=== PATIENT | female | born 1985 | race Caucasian/White ===

== ENCOUNTER 2016-08-24 07:41 | Emergency (ER) | payer BC ==
[2016-08-24] MEDS ORDERED: ONDANSETRON HCL IV 4 MG/2 ML VIAL IV ONE (08:05)
[2016-08-24] MEDS ORDERED: 0.9 % SODIUM CHLORIDE 1,000 ML BAG IV ONE (08:05)
--- NOTE | 2016-08-24 08:12 | Emergency Department Record ---
History of Present Illness - General Chief Complaint: Abdominal Pain Stated Complaint: ABD PAIN Time Seen by Provider: 08/24/16 08:04 Source: Patient, Family Mode of Arrival: Ambulatory Limitations: No limitations - History of Present Illness Initial Comments: 30 yo female presents with nausea (no vomiting) and diarrhea. The onset of the diarrhea was yesterday morning. Her son had diarrhea earlier in the week. She felt subjective fevers and chills. The pain was epigastric but is decreasing at this time. She has had her gall bladder removed in the past. PCP is Dr. Jalloh. Complaint: Abdominal pain, Other (Vomiting and diarrhea) Onset/Timin -: Days(s) Location: Epigastric Radiation: Back Severity: Moderate Quality: Sharp Consistency: Intermittent Improves With: Nothing Worsens With: Nothing Context: Sick contacts Associated Symptoms: Diarrhea, Fever - Related Data LMP Date: 08/13/16 LMP (females 10-50): Last week Patient : No Home Medications Medication Instructions Recorded Confirmed Last Taken Alprazolam [Xanax] 0.25 mg PO TID PRN tab 11/23/15 08/24/16 Unknown Fexofenadine/Pseudoephedrine 1 cap PO DAILY 08/24/16 08/24/16 Unknown [Tiana-D 24 Hour Tablet] Previous Rx's Medication Instructions Recorded Ondansetron [Zofran Odt] 4 mg PO Q8H #15 tab.rapdis 08/24/16 Pantoprazole Sodium [Protonix] 20 mg PO DAILY #30 tablet. 08/24/16 Sucralfate [Carafate] 1 g PO BID #200 udc 08/24/16 Allergies Allergy/AdvReac Type Severity Reaction Status Date / Time No Known Drug Allergies Allergy Verified 08/24/16 08:00 Travel Screening - Travel/Exposure Within Last 30 Days Have you traveled within the last 30 days?: No - Travel/Exposure Within Last Year Have you traveled outside the [place] in the last year?: No - Additonal Travel Details Have you been exposed to anyone with a communicable illness?: No Review of Systems Constitutional: Reports: Chills, Fever. Denies: Malaise, Weakness Eyes: Denies: Eye discharge ENT: Denies: Congestion, Ear pain, Throat pain Respiratory: Denies: Cough, Wheezes Cardiovascular: Denies: Chest pain, Palpitations, Syncope Endocrine: Denies: Fatigue, Polydipsia, Polyuria Gastrointestinal: Reports: As per HPI, Abdominal pain, Diarrhea, Nausea. Denies : Constipation, Hematemesis, Vomiting Genitourinary: Denies: Dysuria, Frequency, Urgency Musculoskeletal: Denies: Arthralgia, Back pain, Neck pain Skin: Denies: Bruising, Change in color, Rash Neurological: Denies: Confusion, Headache Psychiatric: Denies: Anxiety Hematological/Lymphatic: Denies: Blood Clots, Easy bleeding, Easy bruising, Swollen glands Past Medical History - SOCIAL HISTORY Smoking Status: Never smoker Alcohol Use: None Drug Use: None - RESPIRATORY Hx Respiratory Disorders: No - CARDIOVASCULAR Hx Cardio Disorders: Yes Comment:: mitral valve prolaspe - NEURO Hx Neuro Disorders: Yes Hx Dizziness: Yes (POTS) - GI Hx GI Disorders: Yes Hx Reflux: Yes - Hx Genitourinary Disorders: No - ENDOCRINE Hx Endocrine Disorders: No - MUSCULOSKELETAL Hx Musculoskeletal Disorders: No - PSYCH Hx Psych Problems: No - HEMATOLOGY/ONCOLOGY Hx Hematology/Oncology Disorders: No Family Medical History Any Significant Family History?: Yes Hx Heart Disease: Grandparents *Heart Comment: mitral valve prolaspe and factor 5 clotting disorder Physical Exam - General General Appearance: Alert, Oriented x3, Cooperative, No acute distress Limitations: No limitations - Head Head exam: Normal inspection - Eye Eye exam: Normal appearance. negative: Conjunctival injection - ENT ENT exam: Normal exam, Mucous membranes moist Ear exam: Normal external inspection Nasal Exam: Normal inspection Mouth exam: Normal external inspection Teeth exam: Normal inspection Throat exam: Normal inspection - Neck Neck exam: Normal inspection, Full ROM. negative: Tenderness - Respiratory Respiratory exam: Normal lung sounds bilaterally. negative: Respiratory distress, Rhonchi, Stridor, Wheezes - Cardiovascular Cardiovascular Exam: Regular rate, Normal rhythm, Normal heart sounds - GI/Abdominal GI/Abdominal exam: Soft. negative: Diminished bowel sounds, Distended, Rebound , Rigid, Tenderness - Rectal Rectal exam: Deferred - exam: Deferred - Extremities Extremities exam: Normal inspection, Full ROM, Normal capillary refill. negative: Pedal edema, Tenderness - Back Back exam: Reports: Normal inspection, Full ROM. Denies: CVA tenderness (R), CVA tenderness (L), Muscle spasm, Paraspinal tenderness, Rash noted, Tenderness , Vertebral tenderness - Neurological Neurological exam: Alert, Normal gait, Oriented X3 - Psychiatric Psychiatric exam: Normal affect, Normal mood. negative: Agitated, Anxious - Skin Skin exam: Dry, Intact, Normal color, Warm Course Vital Signs 08/24/16 07:50 Temperature 97.8 F Pulse Rate 120 H Respiratory 16 Rate Blood Pressure 115/82 Pulse Ox 99 - Reevaluation(s) Reevaluation #1: The patient declined the need for Zofran or pain medications at this time. 08/24/16 08:28 Reevaluation #2: No acute changes on the CBC or UA expect ketones noted on the UA. 08/24/16 08:37 Reevaluation #3: The CMP demonstrates dehydration as well as isolated elevated bilirubin of 3.8. She has records with prior elevated bilirubins as well. 08/24/16 08:43 Reevaluation #4: The patient continues to do well without nausea or pain 08/24/16 09:33 Reevaluation #5: 2nd liter completing patient is doing well DC home with Zofran,Carafate and Protonix 08/24/16 10:17 Medical Decision Making - Lab Data Result diagrams: 08/24/16 08:20 08/24/16 08:20 Disposition Clinical Impression: Nausea Diarrhea Qualifiers: Diarrhea type: unspecified type Qualified Code(s): R19.7 - Diarrhea, unspecified Condition: (1) Good Instructions: Acute Diarrhea (ED), Acute Nausea and Vomiting (ED) Additional Instructions: Rest and stay hydrated Return if you have uncontrolled nausea, vomiting or diarrhea Return if you have abdominal pain or any new concerns Prescriptions: Sucralfate [Carafate] 1 g PO BID #200 udc Pantoprazole Sodium [Protonix] 20 mg PO DAILY #30 tablet. Ondansetron [Zofran Odt] 4 mg PO Q8H #15 tab.rapdis Forms: Patient Portal Access
[2016-08-24 08:27] LABS: BASO % 0.3 % (0-6); EOS % 0.6 % (0-6); HEMATOCRIT 42.3 % (35.0-47.0); HEMOGLOBIN 14.9 gm/dl (11.6-16.0); LYMPH % 14.1 % (16-45); MEAN CELL VOLUME 89.6 fl (81-97); MEAN CORPUSCULAR HEMOGLOBIN 31.6 pg (27-33); MEAN CORPUSCULAR HGB CONC 35.2 g/dl (32-36); MEAN PLATELET VOLUME 9.2 fl (7.4-10.4); PLATELET COUNT 257 K/uL (130-400); RED BLOOD COUNT 4.72 M/uL (3.80-5.40); WHITE BLOOD COUNT W/O DIFF 6.5 K/uL (4.2-12.2)
[2016-08-24 08:29] LABS: URINE APPEARANCE CLEAR; URINE BILIRUBIN NEGATIVE (NEGATIVE); URINE BLOOD TRACE-I (NEGATIVE); URINE COLOR YELLOW; URINE GLUCOSE (UA) NEGATIVE (NEGATIVE); URINE KETONE 15 mg/dL (NEGATIVE); URINE LEUKOCYTE ESTERASE NEGATIVE (NEGATIVE); URINE NITRITE NEGATIVE (NEGATIVE); URINE PROTEIN NEGATIVE (NEGATIVE); URINE UROBILINOGEN 0.2 E.U./dL (0.20 - 1.00)
[2016-08-24 08:32] LABS: HCG,QUALITATIVE URINE NEGATIVE (NEGATIVE)
[2016-08-24 08:38] LABS: URINE BACTERIA FEW; URINE RBC 0 - 2 (NONE SEEN); URINE WBC 0 - 2 (0-2/hpf)
[2016-08-24 08:39] LABS: ALB/GLOB RATIO 1.3 (1.1-1.8); ALBUMIN 4.9 gm/dL (3.5-5.0); ALKALINE PHOSPHATASE 77 U/L (38-126); ALT/SGPT 35 U/L (9-52); ANION GAP 16.1 (7-16); AST/SGOT 22 U/L (14-36); BILIRUBIN,TOTAL 3.84 mg/dL (0.2-1.3); BLOOD UREA NITROGEN 12 mg/dL (7-17); CARBON DIOXIDE 26.9 mmol/L (22-30); CREATININE 0.8 mg/dL (0.52-1.04); EST GLOMERULAR FILTRATION RATE > 60 ml/min; GLUCOSE,RANDOM 91 mg/dL (70-110); LIPASE 36 U/L (23-300); TOTAL PROTEIN 8.6 gm/dL (6.3-8.2); URINE MUCUS MODERATE
== END 2016-08-24 10:30 | disposition home or self-care (01) ==
LOC: ER 07:41
DX: R11.0 Nausea (principal); R19.7 Diarrhea, unspecified; R10.13 Epigastric pain
CPT/HCPCS: 99284 ×2; 96374; 96361; 83690; 85025; 80053; 81001; 81025; J2405; J7030

== ENCOUNTER 2018-12-16 09:56 | Emergency (ER) | payer BC, OTHER ==
[2018-12-16] MEDS ORDERED: 0.9 % SODIUM CHLORIDE 1,000 ML BAG IV ONE (10:03)
[2018-12-16] MEDS ORDERED: ONDANSETRON HCL IV 4 MG/2 ML VIAL IVP ONE ×2 (10:03→11:23)
[2018-12-16] MEDS ORDERED: MORPHINE SULFATE 10MG/1ML **1ML VIAL IVP ONE ×2 (10:03→11:57)
[2018-12-16] MEDS ORDERED: KETOROLAC 30 MG/ML VIAL IVP ONE (10:03)
--- NOTE | 2018-12-16 10:03 | Emergency Department Record ---
History of Present Illness - General Chief complaint: Flank Pain Stated complaint: KIDNEY STONES Time Seen by Provider: 12/16/18 09:58 Source: Patient, Family Mode of Arrival: Ambulatory Limitations: No limitations - History of Present Illness Initial comments: 33 yo female presents with left flank pain that has been coming and going since yesterday. She states she was diagnosed with a UTI and kidney stones about two weeks ago at [facility]. She has vomiting with nausea. No fevers. No diarrhea. The pain she had experienced at [facility] had resolved for about two weeks. No urologist or PCP. She has pressure over the bladder and urge to urinate. Her first renal stone occurred at age 19. She has passed numerous stones since then. NO history of urologic stents or surgery. She has had her gall bladder removed. MD Complaint: Pelvic pain, Other (Left flank pain) Location: Suprapubic Radiation: L flank Severity: Moderate Quality: Aching, Sharp Consistency: Intermittent Improves with: None Worsens with: None Patient : No Associated Symptoms: Abdominal pain, Dysuria, Loss of appetite, Nausea/vomiting - Related Data Previous Rx's Medication Instructions Recorded Hydrocodone/Acetaminophen [[place] 1 each PO Q6H #8 tablet 12/16/18 5-325 Tablet] Ondansetron [Zofran Odt] 4 mg PO Q8H #15 tab.rapdis 12/16/18 Allergies Allergy/AdvReac Type Severity Reaction Status Date / Time sulfamethoxazole AdvReac DIARRHEA Verified 12/16/18 10:07 [From Bactrim] trimethoprim [From Bactrim] AdvReac DIARRHEA Verified 12/16/18 10:07 Review of Systems Constitutional: Denies: Chills, Fever, Malaise, Weakness Eyes: Denies: Eye discharge ENT: Denies: Congestion, Throat pain Respiratory: Denies: Cough, Dyspnea Cardiovascular: Denies: Chest pain, Syncope Endocrine: Denies: Fatigue Gastrointestinal: Reports: Abdominal pain, Nausea, Vomiting. Denies: Diarrhea Genitourinary: Reports: Dysuria, Frequency Musculoskeletal: Reports: As per HPI, Back pain. Denies: Other Skin: Denies: Bruising, Change in color, Rash Neurological: Denies: Headache Psychiatric: Denies: Anxiety Hematological/Lymphatic: Denies: Easy bleeding, Easy bruising Past Medical History - SOCIAL HISTORY Smoking Status: Never smoker Drug Use: None - RESPIRATORY Hx Respiratory Disorders: No - CARDIOVASCULAR Hx Cardio Disorders: Yes Comment:: mitral valve prolaspe - NEURO Hx Neuro Disorders: Yes Hx Dizziness: Yes (POTS) - GI Hx GI Disorders: Yes Hx Reflux: Yes - Hx Genitourinary Disorders: No - ENDOCRINE Hx Endocrine Disorders: No - MUSCULOSKELETAL Hx Musculoskeletal Disorders: No - PSYCH Hx Psych Problems: No - HEMATOLOGY/ONCOLOGY Hx Hematology/Oncology Disorders: No Family Medical History Hx Heart Disease: Grandparents *Heart Comment: mitral valve prolaspe and factor 5 clotting disorder Physical Exam - General General Appearance: Alert, Oriented x3, Cooperative, No acute distress Limitations: No limitations - Head Head exam: Atraumatic, Normal inspection - Eye Eye exam: Normal appearance. negative: Conjunctival injection, Scleral icterus - ENT ENT exam: Normal exam, Mucous membranes moist Ear exam: Normal external inspection Nasal Exam: Normal inspection Mouth exam: Normal external inspection - Neck Neck exam: Normal inspection - Respiratory Respiratory exam: Normal lung sounds bilaterally. negative: Accessory muscle use, Decreased breath sounds, Prolonged expiratory, Respiratory distress, Rhonchi, Stridor, Wheezes - Cardiovascular Cardiovascular Exam: Regular rate, Normal rhythm, Normal heart sounds - GI/Abdominal GI/Abdominal exam: Soft, Tenderness (suprapubic). negative: Distended, Guarding, Rebound, Rigid - Rectal Rectal exam: Deferred - exam: Deferred - Extremities Extremities exam: Normal inspection - Back Back exam: Reports: CVA tenderness (L). Denies: CVA tenderness (R), Rash noted, Tenderness - Neurological Neurological exam: Alert, Oriented X3 - Psychiatric Psychiatric exam: Normal affect, Normal mood - Skin Skin exam: Dry, Intact, Normal color, Warm Course - Reevaluation(s) Reevaluation #1: [facility] was reviewed from a November [address] with bilateral intrarenal stones. NO active stones. Otherwise normal. UA negative for infection. Vitals reviewed. No acute abnormalities. 12/16/18 10:12 We discussed risk vs benefit for repeat CT scan for the left flank pain. She reports she has had 4-6 CT scans in the past. I recommend US at this time to assess the left flank pain. 12/16/18 10:23 12/16/18 10:27 The CBC is normal. The UA is negative for infection Few RBC's noted. 12/16/18 10:28 HCG is negative 12/16/18 10:29 12/16/18 10:31 The BMP is normal 12/16/18 10:40 12/16/18 10:53 Pain is still present. The patient prefers no narcotic yet. She is NPO until US results so Ofirmev ordered. 12/16/18 11:13 The US was reviewed. Left renal collecting system upper limits of normal otherwise normal study. 12/16/18 11:34 12/16/18 11:53 The morphine has helped. The patient still has some flank pain similar to stone pain. I explained she may have a small stone she is passing. We discussed the option of CT scan. With normal vitals, labs and UA she prefers to wait and see if the pain passes. We discussed returning in 12 to 24 hours if not resolved and sooner if worse, fever or uncontrolled symptoms. 12/16/18 11:57 The patient was prescribed a controlled substance. The prescription does not exceed three days. MAPS was reviewed at the time of the prescripts The patient verbalized understanding of the risks of the medication being provided Medical Decision Making - Lab Data Result diagrams: 12/16/18 10:10 12/16/18 10:10 Disposition Disposition: Discharge Clinical Impression: Left flank pain Disposition: Home, Self-Care Condition: (1) Good Instructions: Flank Pain (ED) Additional Instructions: Call your doctor for the next available follow up appointment Review this ER visit and the tests performed with your family doctor Return to the ER for a recheck in the next 12 to 24 hours if worse, any new concerns or questions Take the prescriptions provided as directed Prescriptions: Hydrocodone/Acetaminophen [[place] 5-325 Tablet] 1 each PO Q6H #8 tablet Ondansetron [Zofran Odt] 4 mg PO Q8H #15 tab.rapdis Forms: Patient Portal Access Time of Disposition: 11:55 Quality - Quality Measures Quality Measures: N/A - Blood Pressure Screening Does Patient Have Any of the Following: No Blood Pressure Classification: Hypertensive Reading Systolic Measurement: 147 Diastolic Measurement: 97 Screening for High Blood Pressure: < Pre-Hypertensive BP, F/U Documented > [G8950] Pre-Hypertensive Follow-up Interventions: Referral to alternative/primary care provider.
[2018-12-16 10:15] LABS: ABSOLUTE NEUTROPHIL COUNT 5.65; BASO % 0.3 % (0-6); EOS % 0.4 % (0-6); GRAN % 70.9 % (47-80); HEMATOCRIT 39.8 % (35.0-47.0); HEMOGLOBIN 13.9 gm/dl (11.6-16.0); LYMPH % 18.4 % (16-45); MEAN CELL VOLUME 90.2 fl (81-97); MEAN CORPUSCULAR HEMOGLOBIN 31.5 pg (27-33); MEAN CORPUSCULAR HGB CONC 34.9 g/dl (32-36); MEAN PLATELET VOLUME 9.3 fl (7.4-10.4); PLATELET COUNT 257 K/uL (130-400); RED BLOOD COUNT 4.41 M/uL (3.80-5.40); RED CELL DISTRIBUTION WIDTH 12.2 % (11.5-14.5); URINE APPEARANCE CLEAR; URINE BILIRUBIN NEGATIVE (NEGATIVE); URINE BLOOD SMALL (NEGATIVE); URINE COLOR YELLOW; URINE GLUCOSE (UA) NEGATIVE (NEGATIVE); URINE KETONE NEGATIVE (NEGATIVE); URINE LEUKOCYTE ESTERASE NEGATIVE (NEGATIVE); URINE NITRITE NEGATIVE (NEGATIVE); URINE PROTEIN NEGATIVE (NEGATIVE); URINE UROBILINOGEN 0.2 E.U./dL (0.20 - 1.00)
[2018-12-16 10:26] LABS: HCG,QUALITATIVE URINE NEGATIVE (NEGATIVE); URINE BACTERIA NONE SEEN; URINE WBC NONE SEEN (0-2/hpf)
[2018-12-16 10:28] LABS: BLOOD UREA NITROGEN 7 mg/dL (6-20); CREATININE 0.7 mg/dL (0.5-0.9); EST GLOMERULAR FILTRATION RATE > 60 mL/min
[2018-12-16 10:31] LABS: GLUCOSE,RANDOM 99 mg/dL (74-109)
[2018-12-16] MEDS ORDERED: ACETAMINOPHEN 1,000 MG/100 ML BTL IVPB ONE (10:53)
--- NOTE | 2018-12-17 18:52 | ULTRASOUND REPORT ---
EXAM: ULTRASOUND RENAL HISTORY: SEVERE LEFT FLANK/SIDE PAIN. TECHNIQUE: Routine ultrasound examination of the urinary bladder and kidneys. COMPARISON: CT abdomen and pelvis without contrast dated 07/21/2013. FINDINGS: Evaluation of the urinary bladder is near nondiagnostic due to lack of distention. The patient voided just prior to the examination. Bladder volume is 10 mL. Each kidney is visualized and smoothly marginated. The right kidney measures 10 x 4 x 4 cm and the left kidney measures 10 x 5 x 4 cm. No hydronephrosis is seen. No cystic nor contour-deforming solid renal mass. Renal echogenicity does appear mildly increased. This can be seen with medical renal disease. IMPRESSION: 1. NO GROSS HYDRONEPHROSIS NOR RENAL MASS. THE LEFT RENAL COLLECTING SYSTEM PELVIS IS NEAR THE UPPER LIMITS OF NORMAL IN CALIBER. THIS MAY BE DEVELOPMENTAL. 2. NO SHADOWING RENAL CALCULUS. INCREASED RENAL ECHOGENICITY. THIS CAN BE SEEN WITH MEDICAL RENAL DISEASE. JOB NUMBER: [id number] MTDD
== END 2018-12-16 12:25 | disposition home or self-care (01) ==
LOC: ER 09:56
DX: M54.5 Low back pain (principal); R10.2 Pelvic and perineal pain; R11.2 Nausea with vomiting, unspecified; R30.0 Dysuria; R35.0 Frequency of micturition; Z87.442 Personal history of urinary calculi
CPT/HCPCS: 99284 ×2; 96376; 96365; 96375; 96361; 85025; 80048; 81001; 81025; 76775; J1885; J2405; J2270; J7030